=== PATIENT | male | born 1970 | race Hispanic/Latino ===

== ENCOUNTER 2023-05-08 19:46 | Emergency (ER) | payer OTHER ==
[~2023-05-08] VITALS: Ht 170.2 cm; Wt 71.7 kg
[2023-05-08 22:47] LABS: APPEARANCE,URINE CLEAR (CLEAR); BILIRUBIN,URINE NEGATIVE (NEGATIVE); COLOR,URINE YELLOW (YELLOW); GLUCOSE, URINE (UA) >=1000 mg/dL (NEGATIVE); KETONES,URINE 40 mg/dL (NEGATIVE); LEUKOCYTE ESTERASE ,URINE 250 Leu/uL (NEGATIVE); NITRATE,URINE NEGATIVE (NEGATIVE); OCCULT BLOOD,URINE NEGATIVE (NEGATIVE); PROTEIN,URINE 20 mg/dL (NEGATIVE)
[2023-05-08 22:48] LABS: ADD UA MICROSCOPIC YES
[2023-05-08 22:53] LABS: BASOPHILS # (AUTO) 0.04 K/uL (0.00-0.20); BASOPHILS % (AUTO) 0.3 % (0.0-5.0); EOSINOPHILS # (AUTO) 0.02 K/uL (0.00-0.70); EOSINOPHILS % (AUTO) 0.1 % (0.0-8.0); HEMATOCRIT 51.2 % (42-54); IMMATURE GRANULOCYTE ABSOLUTE 0.04 K/uL (0-1); LYMPHOCYTES # (AUTO) 2.4 K/uL (1.0-4.8); LYMPHOCYTES % (AUTO) 15.2 % (21.0-51.0); MEAN CORPUSCULAR HEMOGLOBIN 28.7 pg (27.0-33.0); MEAN CORPUSCULAR HGB CONC 34.2 g/dL (32.0-36.0); MEAN CORPUSCULAR VOLUME 83.9 fL (79-99); MONOCYTES # (AUTO) 1.2 K/uL (0.1-1.0); MONOCYTES % (AUTO) 7.6 % (3.0-13.0); NEUTROPHILS # (AUTO) 12.1 K/uL (1.8-7.7); NEUTROPHILS % (AUTO) 76.5 % (40.0-77.0); PLATELET COUNT (AUTO) 288 K/uL (130-400); RED CELL DISTRIBUTION WIDTH 12.2 % (11.0-15.5); WHITE BLOOD COUNT (AUTO) 15.8 K/uL (4.8-10.8)
[2023-05-08 22:57] LABS: BACTERIA,URINE None Seen /HPF (None Seen); SQUAMOUS EPITHELIAL CELL,UR Rare /HPF (0-2); TRANSITIONAL EPI CELLS,URINE Rare /HPF (None Seen)
[2023-05-08] MEDS ORDERED: ONDANSETRON 4MG INJ IVP ONE (23:00)
[2023-05-08 23:02] LABS: CREATININE 1.1 mg/dL (0.5-1.5); POTASSIUM 5.1 mmol/L (3.5-5.1)
[2023-05-08 23:07] LABS: ALBUMIN 4.1 g/dL (3.5-5.0); BILIRUBIN,TOTAL 0.7 mg/dL (0.2-1.0); TOTAL PROTEIN, SERUM 8.1 g/dL (6.0-8.3)
[2023-05-09 00:21] VITALS: BP 128/78; PULSE 82; RESP 18; O2SAT 98
[2023-05-09] MEDS ORDERED: METOCLOPRAMIDE 10 MG/2 ML VIAL IVP ONE (00:30)
[2023-05-09] MEDS ORDERED: FAMOTIDINE 20MG VIAL IV ONE (00:30)
[2023-05-09] MEDS ORDERED: MORPHINE 4 MG SYG IVP ONE (00:30)
[2023-05-09] MEDS ORDERED: IOHEXOL 350 MG/ML 100ML INFUS..BTL IV ONE (00:36)
[2023-05-09] MEDS ORDERED: METO-296 PO (01:53)
[2023-05-09] MEDS ORDERED: METR-172 PO (01:53)
[2023-05-09] MEDS ORDERED: CEPH500B PO (01:53)
[2023-05-09] MEDS ORDERED: PANT40TA PO (01:53)
[2023-05-09] MEDS ORDERED: CEFTRIAXONE 2GM VIAL IVPB ONE (02:00)
[2023-05-09] MEDS ORDERED: METRONIDAZOLE 500 MG TABLET PO SCH (02:00)
[2023-05-09] MEDS ORDERED: PANTOPRAZOLE 40 MG/VIAL IVP ONE (02:00)
[2023-05-09] MEDS ORDERED: 0.9%NACL 1000ML 1,000 ML IV ONE (02:00)
== END 2023-05-09 04:20 | disposition home or self-care (01) ==
LOC: EDH 19:46
DX: K29.90 Gastroduodenitis, unspecified, without bleeding (principal); N39.0 Urinary tract infection, site not specified; Z79.899 Other long term (current) drug therapy
CPT/HCPCS: 99285; 96374; 96375; 82150; 84484; 80053; 83690; 85025; 87088; 81001; 36415; 93005; 74178; J2405; J3490; J7030; J0696; J2270; C9113; J2765 ×2; Q9967